=== PATIENT | female | born 1985 | race Caucasian/White ===

== ENCOUNTER 2022-08-18 15:27 | Outpatient (CLI) | payer OTHER, SELFPAY ==
--- NOTE | ~2022-08-18 | US_ITS ---
EXAMINATION: US pelvic complete w TV DATE: 08/18/2022 16:03 INDICATION: Abnormal uterine bleeding Comparison:Ultrasound dated 06/09/2015 TECHNIQUE: Multiple transabdominal and endovaginal sonographic images of the pelvis performed. FINDINGS: The uterus measures 9.2 x 4.6 x 5.4 cm. The endometrial complex measures 1.9 cm. The endome trium is thickened and heterogeneous. There is a small hyperechoic mass in the endometrium measuring 1.2 x 1 x 0.8 cm, suspicious for a polyp. The right ovary measures 3.7 x 2.7 x 3.8 cm and the left ovary measures 2.5 x 1.5 x 2.8 cm. There is a simple cyst of the right ovary measuring 2.6 cm. There are small follicles in each ovary. Normal do ppler signal in both ovaries. There is no free fluid in the pelvis. There are no abnormal masses seen on either side. IMPRESSION: 1. Thickened heterogeneous endometrium measuring 1.9 cm. Contained in the endometrium is a 1.2 cm ech ogenic mass, possibly a polyp. Recommend follow-up clinical evaluation. 2: Simple cyst of the right ovary measuring 2.6 cm. Reviewed, dictated and finalized at location A. ING REPAIRER IMPRESSION: 1. Thickened heterogeneous endometrium measuring 1.9 cm. Contained in the endom etrium is a 1.2 cm echogenic mass, possibly a polyp. Recommend follow-up clinic al evaluation. 2: Simple cyst of the right ovary measuring 2.6 cm.
== END 2022-08-18 15:28 ==
LOC: MICIMG 15:29
PROVIDERS: PCP Nurse Practitioner; Visit Provider Nurse Practitioner
DX: N83.291 Other ovarian cyst, right side (principal); N93.8 Other specified abnormal uterine and vaginal bleeding
CPT/HCPCS: 76830; 76856

== ENCOUNTER 2022-10-19 01:14 | Day surgery (SDC) | payer OTHER, SELFPAY ==
--- NOTE | 2022-10-12 13:55 | SUR.PREOP ---
Report to the Outpatient Waiting Room, entrance under the green pavilion located off [facility], at time 0900 on date 10/19/2022. Planned Procedure Time: 1100. Time changes happen often and if your time is changed the preop area will call you the afternoon before. - You and your visitor will be asked to self-screen and do not enter if you have any COVID symptoms. - Only one visitor is requested with a max of two and NO children visitors are allowed at this time. - The patient visitor may be requested to leave or wait in car when not with patient due to distancing restrictions. - A mask is optional within the hospital at this time. Patients may have clear liquids (water, carbonated beverages, clear teas, apple juice) until 3 hours prior to surgery with a maximum of 20 ounces. - No food from midnight until time of surgery - Infants may have breast milk until 4 hours before surgery, formula 6 hours prior to surgery. - Children will be allowed to drink immediately following surgery. If applicable, please bring a bottle or sippy cup to assist with drinking. Juice, water, soda, and popsicles are readily available. For infants on formula, please bring formula the day of surgery. Pacifiers are allowed. Take the following medications with a SIP of water the morning of surgery: N/A DO NOT STOP ANY OF YOUR OTHER PRESCRIPTION MEDICATIONS PRIOR TO SURGERY ?EXCEPT THE FOLLOWING Medications to discontinue per physician N/A Date to take last dose N/A Please no make-up, nail bengali, hairspray, perfume, deodorant, or body powder the day of surgery. No jewelry (including any body piercings) or valuables the day of surgery, leave them at home. Please take a shower or bath the night before, or the morning of, surgery with an antibacterial soap. Wear comfortable, loose fitting clothing. Children are encouraged to wear pajamas. - Jewelry must be removed prior to entering the operating room. Rings and piercings that are not removed may be cut off. - The hospital will not accept responsibility for valuables. - Please leave all valuables, including medications, at home the day of surgery. If you are going home after surgery, a licensed drivers license examiner must drive you home. - NO public transportation without another adult if you receive anesthesia. - We recommend that an adult stay with you for 24 hours following discharge. - We also recommend that you do not drive, make important decision, drink alcoholic beverages, or take any drugs that were not prescribed by your health care provider for at least 24 hours after your discharge time. For Pediatric surgeries, we recommend two adults accompany the child home. Follow any additional instructions given to you from your surgeon. If you or anyone in your household have experienced Covid symptoms in the past week, please notify your surgeon or the nurse liaison at the phone number below for possible testing. Telephone instructions given to BARI MICHELLE and asked if any additional questions and then verbalized understanding. Patient advised to call surgeon office or pre surgery nurse liaison [phone] if any additional questions.
[2022-10-12 14:01] VITALS: BMI 20.7
[2022-10-19 09:10] VITALS: BP 112/66; PULSE 70; RESP 16; TEMP 36.3; O2SAT 100
--- NOTE | 2022-10-19 09:17 | WPDHPUPDATE1 ---
History and Physical Update Update Date/Time: 10/19/22 09:17 History and Physical has been reviewed, including an updated exam of the patient. There are NO changes in the patient's condition. Risks, benefits, and alternatives have been discussed and questions answered. Patient agrees to proceed with procedure.
--- NOTE | 2022-10-19 09:17 | PM.HPGS ---
History of Present Illness History of Present Illness Consent: Risks, benefits, and alternatives have been discussed and questions answered. Patient agrees to proceed with procedure. Chief complaint: abnormal uterine bleeding Narrative: Sheri Miller is a 37 year old female with irregular and heavy bleeding. Pelvic ultrasound shows a thickened endometrium with a possible endometrial polyp. Was recommended to undergo D&C hysteroscopy for further evaluation. Risks of infection, bleeding, perforation, and fluid imbalance were reviewed. Possible pathology was discussed. Patient voices understanding and agrees to proceed. Review of Systems Review of Systems: not repeated day of surgery; patient states no changes in status [facility] Past Medical History Medical History (Updated 10/19/22 @ 09:20 by Aline Bragg MD) Anxiety CREST syndrome Depression Interstitial cystitis (normal spontaneous vaginal delivery) X2 Raynauds disease Surgical History Surgical History (Updated 10/19/22 @ 09:19 by Aline Bragg MD) History of bilateral tubal ligation Social History Social History Smoking status: Never smoker Living arrangements: with family Spiritual care concerns: No Meds Home Medications and Allergies Home Medications Medication Instructions Recorded Confirmed Type No Home Medications 10/12/22 10/12/22 History Allergies Allergy/AdvReac Type Severity Reaction Status Date / Time No Known Allergies Allergy Verified 10/12/22 13:42 Exam Const: General: healthy appearing and alert Orientation/consciousness: patient oriented x3 Resp: Effort & Inspection: normal respiratory effort GI: GI Palp: Yes Soft to palpation, No Tenderness to palpation present (GI) and No Palpable mass present : External Female Exam: normal external appearance Speculum Exam - Vagina: normal appearance of the vagina and normal vaginal discharge Speculum Exam - Cervix: normal appearance of the cervix Bimanual exam- vagina & uterus: uterine size normal and consistency normal Bimanual Exam- Adnexa, other: normal adnexae and No adnexal tenderness Neuro: General: patient oriented x3 Assessment and Plan Assessment and plan (1) Menorrhagia: Code(s): N92.0 - Excessive and frequent menstruation with regular cycle Status: Acute Assessment and Plan: plan to proceed with D&C hysteroscopy
[2022-10-19] MEDS: ACETAMINOPHEN 500 MG TABLET 1000 MG PO (09:28)
[2022-10-19] MEDS: LACTATED RINGERS 1,000 ML 30 ML IV CONT (09:34)
--- NOTE | 2022-10-19 10:14 | P.PNAN_ITS ---
Anes - Initial Pre Proc Eval Procedure: Operation Date: 10/19/22 11:00 Proposed Procedures p Hysteroscopy Dilation and Curettage - Aline Bragg MD Date/Time: 10/19/22 10:14 Surgeon: Aline Bragg MD Pre Op Diagnosis: abnormal uterine bleeding Patient Data Age: 37 Gender: F Height: 1.55 m Weight: 51.7 kg Last Vital Signs Temp 36.3 C L 10/19/22 09:10 Pulse 70 10/19/22 09:10 Resp 16 10/19/22 09:10 BP 112/66 10/19/22 09:10 Pulse Ox 100 10/19/22 09:10 O2 Del Method Room Air 10/19/22 09:10 Allergies Allergy/AdvReac Type Severity Reaction Status Date / Time No Known Allergies Allergy Verified 10/19/22 09:25 Home Medications Medication Instructions Recorded Confirmed Type No Home Medications 10/12/22 10/12/22 History Patient hx anesthesia problems: none Family hx anesthesia problems: none Results Review: All pre-operative results and documents have been reviewed as part of the pre- operative evaluation. [facility] Past Medical History Medical History Anxiety CREST syndrome Depression Interstitial cystitis (normal spontaneous vaginal delivery) X2 Raynauds disease Surgical History Surgical History History of bilateral tubal ligation Social History Social History Smoking status: Never smoker Living arrangements: with family Spiritual care concerns: No Anes - Eval Final PreProcedure Day of Procedure 10/19/22 10:14 Patient weight: normal Heart: regular rate and rhythm Lungs: clear to auscultation Airway: Mallampati scale class 1 Neurological: alert and oriented Last oral intake: >/= 8 hours ASA classification: II Emergent: no Anesthetic plan: proceed Anesthesia type and monitoring: general GIVS and standard monitoring Results Review: All pre-operative results and documents have been reviewed as part of the pre- operative evaluation. Informed Consent: The patient's anesthetic plan and its attendant risks and benefits were discussed with the patient/family/POA. Questions were solicited and answers provided to the satisfaction of the patient/family/POA.
[2022-10-19] MEDS: LIDOCAINE HCL 1% PF 30 ML VIAL 10 ML INFILTRATE (10:37)
[2022-10-19 10:51] VITALS: BP 89/46; PULSE 61; RESP 12; O2SAT 98
--- NOTE | 2022-10-19 10:52 | P.OP_ITS ---
Procedure Note - Detailed Date of Procedure 10/19/22 Pre-op Diagnosis abnormal uterine bleeding Post-op Diagnosis Same Procedure Performed D&C hysteroscopy Surgeon Aline Bragg MD Anesthesia MAC and Local Findings uterus sounds to 8cm; 2 polyps noted; the remainder of the endometrium appears grossly normal Description of Procedure The patient is taken to the operating room and placed under anesthesia in the dorsal lithotomy position. She was prepped and draped in the usual sterile fashion. [place] speculum was placed in the vagina and the cervix was grasped on the anterior lip with a tenaculum. Cervix is injected in each quadrant with 1% lidocaine. The internal os is noted to be stenotic therefore the os Finders are used. Uterus is sounded to 8cm. The diagnostic hysteroscope was placed with the above-stated findings. The Aveeta resection device is placed and under direct visualization both polyps are removed in their entirety. The hysteroscope was removed and the sharp curette used to curette the endometrium until a good uterine cry is noted in all areas. All instruments are removed. Sponge, needle, and instrument counts are correct per the OR staff. The patient is awakened from anesthesia and taken to recovery in stable condition. Estimated Blood Loss 5 Drains No Packing No Pathology Yes ( Endometrial shavings and curettings) Complications No immediate complications Condition Stable Disposition PACU
[2022-10-19 11:05] VITALS: BP 101/60; PULSE 55; RESP 14; O2SAT 99
[2022-10-19 11:20] VITALS: BP 107/63; PULSE 58; RESP 14; O2SAT 100
[2022-10-19 11:40] VITALS: BP 127/81; PULSE 78; RESP 14
== END 2022-10-19 11:49 | disposition home or self-care (01) ==
PROVIDERS: PCP Nurse Practitioner; Visit Provider Obstetrics & Gynecology Gynecology
PROC: 0U5B8ZZ Destruction of Endometrium, Via Natural or Artificial Opening Endoscopic (ICD-10-PCS; CPT 58563; principal; 2022-10-19 11:00)
DX: N92.0 Excessive and frequent menstruation with regular cycle (principal)
CPT/HCPCS: 58558; 88305; A9270; J2250; J2405; J2704; J3010; J7120

== ENCOUNTER 2022-11-03 15:57 | Outpatient (CLI) | payer OTHER, SELFPAY ==
[2022-11-03 16:18] LABS: Hematocrit 36.9 % (37.0-47.0); Hemoglobin 12.3 g/dL (12.0-15.0); Mean Corpuscular HGB Conc 33.3 g/dl (32-36); Mean Corpuscular Hemoglobin 29.9 pg (26-34); Mean Corpuscular Volume 89.8 fl (80-100); Mean Platelet Volume 10.2 fl (7.4-10.4); Platelet Count Result 243 k/mm3 (150-375); Red Blood Count 4.11 M/mm3 (4.2-5.4)
[2022-11-03 17:01] LABS: Free T4 Free Thyroxine 1.02 ng/mL (0.78-2.19)
== END 2022-11-03 15:58 | disposition home or self-care (01) ==
LOC: ANHLAB 16:00
PROVIDERS: PCP Nurse Practitioner; Visit Provider Obstetrics & Gynecology Gynecology
DX: N92.1 Excessive and frequent menstruation with irregular cycle (principal)
CPT/HCPCS: 36415; 84439; 84443; 85027

== ENCOUNTER 2023-03-25 07:46 | Outpatient (CLI) | payer OTHER, SELFPAY ==
--- NOTE | ~2023-03-25 | US_ITS ---
Limited Abdominal Sonogram: Real-time sonographic imaging of the right upper quadrant was performed. Clinical History: Right upper quadrant pain Findings: The liver appears normal with no evidence of mass lesion or bile duct dilatation. Main por brittni vein demonstrates normal direction of flow. The gallbladder is well distended, and appears normal with no evidence of gallstone or wall thickening. The common bile duct measures 4 mm. The visualize d pancreas, aorta, and IVC are unremarkable. Impression: No significant abnormality seen. Reviewed, dictated and finalized at location M. Impression: No significant abnormality seen.
== END 2023-03-25 07:47 ==
PROVIDERS: PCP Family Medicine; Visit Provider Family Medicine
DX: R10.11 Right upper quadrant pain (principal)
CPT/HCPCS: 76705

== ENCOUNTER 2024-06-12 09:46 | Outpatient (CLI) | payer OTHER, SELFPAY ==
--- NOTE | ~2024-06-12 | US_ITS ---
Limited Abdominal Sonogram: Real-time sonographic imaging of the right upper quadrant was performed. Clinical History: Abdominal pain Findings: The liver appears normal with no evidence of mass lesion or bile duct dilatation. Main por brittni vein demonstrates normal direction of flow. The gallbladder is well distended, and appears normal with no evidence of gallstone or wall thickening. The common bile duct measures 3 mm. The visualize d pancreas, aorta, and IVC are unremarkable. Impression: No significant abnormality seen. Reviewed, dictated and finalized at location . Impression: No significant abnormality seen.
== END 2024-06-12 09:47 | disposition home or self-care (01) ==
LOC: ANHIMG 09:48
PROVIDERS: PCP Family Medicine; Visit Provider Family Medicine
DX: R10.11 Right upper quadrant pain (principal)
CPT/HCPCS: 76705

== ENCOUNTER 2024-09-21 15:21 | Outpatient (CLI) | payer OTHER, SELFPAY ==
--- NOTE | ~2024-09-21 | MM_ITS ---
EXAMINATION: MM screening mary ann BI w karen HISTORY: Screening TECHNIQUE: Craniocaudal and mediolateral oblique 3-D tomosynthesis images were obtained and synthetic 2-D images were generated. CAD analysis was submitted and interpreted. COMPARISON: No prior mammogram is available for comparison at this institution. BREAST PARENCHYMAL COMPOSITION: Dense: The breasts are extremely dense, which lowers the sensitivity of mammography. FINDINGS: There is no evidence of suspicious mass, calcification, or architectural distortion to sugg est malignancy in either breast. There has been no suspicious interval change. IMPRESSION: 1. No mammographic evidence of malignancy. 2. Recommend routine screening mammography in one year. BI-RADS Category 1: Negative Reviewed, dictated and finalized at location B. ORATE COMPLIANCE MANAGER
== END 2024-09-21 15:22 | disposition home or self-care (01) ==
LOC: MICIMG 15:22
PROVIDERS: PCP Family Medicine; Visit Provider Obstetrics & Gynecology Gynecology
DX: Z12.31 Encounter for screening mammogram for malignant neoplasm of breast (principal)
CPT/HCPCS: 77063; 77067

== ENCOUNTER 2024-09-21 15:28 | Outpatient (CLI) | payer OTHER, SELFPAY ==
--- NOTE | ~2024-09-21 | US_ITS ---
EXAM: PELVIC ULTRASOUND HISTORY: Pelvic pain COMPARISON: 08/18/2022. FINDINGS: UTERUS: 9.0 x 4.8 x 5.8 cm. The uterus is anteverted and anteflexed. The endometrial complex measures 13 mm. Subendometrial echogenic linear striations/parallel shadowing extending from the endometrium the inne r myometrium suggesting adenomyosis. RIGHT OVARY: The right ovary is unremarkable in echogenicity and size measuring 2.9 x 2.0 x 4.9 cm. Arterial and venous flow are identified. Likely involuting follicle identified measuring 2.2 cm in greatest dimension. LEFT OVARY: The left ovary is unremarkable in echogenicity and size measuring 2.8 x 1.6 x 2.5 cm Both arterial and venous flow are identified. No free fluid is identified within the pelvis. IMPRESSION: Findings suggesting adenomyosis, for which clinical correlation is needed. Reviewed, dictated and finalized at location A. MOBILE ASSEMBLY SUPERVISOR
== END 2024-09-21 15:29 | disposition home or self-care (01) ==
PROVIDERS: PCP Family Medicine; Visit Provider Nurse Practitioner Women's Health
DX: R10.2 Pelvic and perineal pain (principal)
CPT/HCPCS: 76830

== ENCOUNTER 2025-04-10 15:29 | Outpatient (CLI) | payer OTHER, SELFPAY ==
--- NOTE | ~2025-04-10 | US_ITS ---
EXAMINATION: US pelvic complete INDICATION: Pelvic and perineal pain Comparison:Ultrasound dated 09/21/2019 TECHNIQUE: Multiple transabdominal and endovaginal sonographic images of the pelvis performed. FINDINGS: The uterus measures 8.9 x 4.5 x 5.9 cm. The endometrial complex measures 1.3 cm. The right ovary measures 2.6 x 2.7 x 1.3 cm and the left ovary measures 2.7 x 2.3 x 2.2 cm. There ar e small follicles in each ovary. Normal doppler signal in both ovaries. There is no free fluid in the pelvis. There are no abnormal masses seen on either side. IMPRESSION: 1. Mild endometrial thickening. Reviewed, dictated and finalized at location A.
== END 2025-04-10 15:30 | disposition home or self-care (01) ==
LOC: MICIMG 15:30
PROVIDERS: PCP Family Medicine; Visit Provider Nurse Practitioner
DX: R10.2 Pelvic and perineal pain (principal); R19.09 Other intra-abdominal and pelvic swelling, mass and lump
CPT/HCPCS: 76856

== ENCOUNTER 2025-05-21 15:05 | Outpatient (CLI) | payer OTHER, SELFPAY ==
--- NOTE | ~2025-05-21 | CT_ITS ---
EXAMINATION: CT pelvis w con DATE: 05/21/2025 15:30 INDICATION: Pelvic and perineal pain. Right pelvic mass. TECHNIQUE: Computed tomography (CT) of the pelvis was performed with 100 mL Omnipaque 350 intravenous contrast. Automated exposure control and iterative reconstruction technique were employed. The dose-length product was 192.36 mGy-cm. COMPARISON: Pelvis ultrasound 04/10/2025 FINDINGS: There are no dilated loops of bowel. The appendix is normal. There are no pathologically enlarged lymph nodes. There is physiologic fluid in the pelvis. The uterus is normal. There is mild lumbar spondylosis. IMPRESSION: 1. No etiology for the patient's symptoms. Reviewed, dictated and finalized at location E.
== END 2025-05-21 15:06 | disposition home or self-care (01) ==
LOC: MICIMG 15:07
PROVIDERS: PCP Family Medicine; Visit Provider Obstetrics & Gynecology Gynecology
DX: R10.2 Pelvic and perineal pain (principal); R19.09 Other intra-abdominal and pelvic swelling, mass and lump
CPT/HCPCS: 72193; Q9967